=== PATIENT | male | born 1960 | race African-American/Black ===

== ENCOUNTER 2017-06-08 06:24 | Inpatient (IN) | payer OTHER ==
[~2017-06-08] VITALS: Ht 180.3 cm; Wt 147.6 kg
[~2017-06-08 06:24] MED LIST: AMBIEN5 M1 PO; CLONIDINE HCL0.1 MG PO; DESYREL100 MG PO; DOLOPHINE HCL10 MG PO; METHADONE 22 MG/1 ML PO; METHADONE10 MG/1 M1 PO; PERCOCET 10-321 EACH PO; SEROQUEL100 MG PO; TRAZODONE HCL50 MG PO; XANAX1 MG PO
[2017-06-08 07:50] LABS: BASOPHIL COUNT 0.1 K/uL (0-0.1); EOSINOPHIL (%) 3.2 % (0-5); EOSINOPHIL COUNT 0.2 K/uL (0-0.3); HEMATOCRIT 42.2 % (38.0-50.0); IMMATURE GRANULOCYTE (%) 0.6 % (0.0-0.7); INSTRUMENT ABS NEUTROPHIL CT 2.8 K/uL; LYMPHOCYTE COUNT 2.7 K/uL (1.0-2.8); MCH 29.3 PG (29.0-34.0); MCHC 31.5 G/DL (30.0-36.0); MEAN PLAT.VOLUME 9.4 uM^3 (9.0-12.4); MONOCYTE (%) 11.1 % (3-12); MONOCYTE COUNT 0.7 K/uL (0-0.8); NEUTROPHIL (%) 42.6 % (45-76); NEUTROPHIL COUNT 2.8 K/uL (1.8-6.4); PLATELET COUNT 214 K/uL (156-360); RBC DIS.WIDTH-SD 47.8 % (39-53); RED BLOOD COUNT 4.54 M/uL (4.00-5.50); WHITE BLOOD COUNT 6.6 K/uL (4.1-10.2)
[2017-06-08 07:57] LABS: CHLORIDE 107 mEq/L (99-109); POTASSIUM 3.5 mEq/L (3.7-5.4); SODIUM 140 mEq/L (136-147)
[2017-06-08 07:59] LABS: GLUCOSE 91 mg/dL (70-99)
[2017-06-08 08:01] LABS: ANION GAP 5 MEQ/L (2-14)
[2017-06-08 08:02] LABS: SERUM ETHYL ALCOHOL < 10 mg/dL
[2017-06-08 08:03] LABS: GFR ESTIMATE (CALCULATED) > 59 mL/min/
[2017-06-08 08:04] LABS: UREA NITROGEN (BUN) 13 mg/dL (9-23)
[2017-06-08 08:10] LABS: TROP-I INTERPRETATION NEGATIVE; TROPONIN-I < 0.01 ng/mL (0.0-0.30)
[2017-06-08 09:20] LABS: ADD MEDTOX COMMENT Y; AMPHETAMINE NEGATIVE (500 ng/mL); BARBITURATES NEGATIVE (200 ng/mL); BENZODIAZEPINES NEGATIVE (150 ng/mL); COCAINE PRESUMPTIVE POSITIVE (150 ng/mL); INTERNAL CONTROLS VALID? YES; METHADONE PRESUMPTIVE POSITIVE (200 ng/mL); METHAMPHETAMINE NEGATIVE (500 ng/mL); OPIATES (MORPHINE) NEGATIVE (100 ng/mL); OXYCODONE NEGATIVE (100 ng/mL); PHENCYCLIDINE NEGATIVE (25 ng/mL); PROPOXYPHENE NEGATIVE (300 ng/mL); THC CANNABINOIDS NEGATIVE (50 ng/mL); TRICYCLIC ANTIDEPRESSANTS NEGATIVE (300 ng/mL)
[2017-06-08 10:27] VITALS: BP 167/86
[2017-06-08 11:19] VITALS: BP 166/86
[2017-06-08 14:17] VITALS: BP 146/71
[2017-06-08 15:40] VITALS: BP 135/65
[2017-06-09 06:40] LABS: POINT-OF-CARE METER ID UU14188576; POINT-OF-CARE USER ID BHSSMG
[2017-06-09 07:21] VITALS: BP 166/103
[2017-06-09 15:53] VITALS: BP 152/90
[2017-06-10 07:50] VITALS: BP 151/85
[2017-06-10] MEDS ORDERED: AMLODIPINE BESYL5 MG PO (11:15)
[2017-06-10] MEDS ORDERED: WELLBUTRIN XL300 MG PO (11:15)
== END 2017-06-10 11:57 | disposition home or self-care (01) | DRG 885 ==
LOC: EME 06:24 → 1WEST 08:25 → EDOF 08:25 → 1WEST 10:16 → ENRESERV 10:16 → 1WEST 06-10 11:57
PROVIDERS: Emergency Medicine; Psychiatry & Neurology Psychiatry
DX: F33.1 Major depressive disorder, recurrent, moderate (principal); F11.20 Opioid dependence, uncomplicated; F14.20 Cocaine dependence, uncomplicated; R45.851 Suicidal ideations; Z68.42 Body mass index [BMI] 45.0-49.9, adult; F41.9 Anxiety disorder, unspecified; F17.210 Nicotine dependence, cigarettes, uncomplicated; I10 Essential (primary) hypertension; Z91.14 Patient's other noncompliance with medication regimen; E66.01 Morbid (severe) obesity due to excess calories
CPT/HCPCS: 71010; 80048; 82948; 84484; 84999; 85025; 90839; 93005; 97150 GO; 97165 GO; 99281; 99284; G0480; Q0177

== ENCOUNTER 2017-12-19 10:32 | Inpatient (IN) | payer OTHER ==
[~2017-12-19] VITALS: Ht 177.8 cm; Wt 157.2 kg
[~2017-12-19 10:32] MED LIST changes: +AMLODIPINE BESYL5 MG PO; +WELLBUTRIN XL300 MG PO
[2017-12-19 11:55] LABS: HEMATOCRIT 47.1 % (38.0-50.0); HEMOGLOBIN 15.5 G/DL (12.5-16.6); MCHC 32.9 G/DL (30.0-36.0); MCV 91.3 FL (86-99); PLATELET COUNT 251 K/uL (156-360); RBC DIS.WIDTH-CV 13.8 % (11.8-14.6); RBC DIS.WIDTH-SD 46.5 % (39-53); RED BLOOD COUNT 5.16 M/uL (4.00-5.50); WHITE BLOOD COUNT 8.3 K/uL (4.1-10.2)
[2017-12-19 12:08] LABS: CHLORIDE 109 mEq/L (99-109); POTASSIUM 4.4 mEq/L (3.7-5.4); SODIUM 141 mEq/L (136-147)
[2017-12-19 12:10] LABS: GLUCOSE 77 mg/dL (70-99)
[2017-12-19 12:13] LABS: SERUM ETHYL ALCOHOL < 10 mg/dL
[2017-12-19 12:14] LABS: GFR ESTIMATE (CALCULATED) > 59 mL/min/ (58.99-99999); UREA NITROGEN (BUN) 16 mg/dL (9-23)
[2017-12-19 12:17] LABS: TROP-I INTERPRETATION NEGATIVE; TROPONIN-I < 0.01 ng/mL (0.0-0.30)
[2017-12-19 12:25] LABS: AMPHETAMINE NEGATIVE (500 ng/mL); BENZODIAZEPINES NEGATIVE (150 ng/mL); COCAINE PRESUMPTIVE POSITIVE (150 ng/mL); METHAMPHETAMINE NEGATIVE (500 ng/mL); OPIATES (MORPHINE) NEGATIVE (100 ng/mL); PHENCYCLIDINE NEGATIVE (25 ng/mL); THC CANNABINOIDS NEGATIVE (50 ng/mL)
[2017-12-19 12:26] LABS: BARBITURATES NEGATIVE (200 ng/mL); BUPRENORPHINE NEGATIVE (10 ng/mL); METHADONE PRESUMPTIVE POSITIVE (200 ng/mL); OXYCODONE NEGATIVE (100 ng/mL); PROPOXYPHENE NEGATIVE (300 ng/mL); TRICYCLIC ANTIDEPRESSANTS NEGATIVE (300 ng/mL)
[2017-12-19] MEDS ORDERED: NORVASC5 MG PO (15:19)
[2017-12-19] MEDS ORDERED: COZAAR100 MG PO (15:25)
[2017-12-20 00:58] LABS: APPEARANCE CLEAR ((CLEAR)); BILIRUBIN NEGATIVE; BLOOD NEGATIVE; COLOR YELLOW ((YELLOW)); GLUCOSE (STRIP) NEGATIVE; KETONES NEGATIVE; LEUKOCYTES NEGATIVE; NITRITE NEGATIVE; PROTEIN (STRIP) NEGATIVE; SPECIFIC GRAVITY 1.025 (1.000-1.030); UROBILINOGEN 0.2 MG/DL (0.2-1.0)
[2017-12-20 11:53] VITALS: BP 162/71
[2017-12-20 15:44] VITALS: BP 151/93
[2017-12-21 01:27] VITALS: BP 175/88
[2017-12-21 07:44] VITALS: BP 171/95
[2017-12-21 09:55] VITALS: BP 137/92
[2017-12-21 15:50] VITALS: BP 159/89
[2017-12-21 21:23] VITALS: BP 166/113
[2017-12-21 21:54] VITALS: BP 166/98
[2017-12-22 04:05] VITALS: BP 141/92
[2017-12-22 07:45] VITALS: BP 173/78
[2017-12-22 15:47] VITALS: BP 137/79
[2017-12-23 09:40] VITALS: BP 174/85
[2017-12-23 10:25] VITALS: BP 156/99
[2017-12-23 16:17] VITALS: BP 136/63
[2017-12-24 08:01] VITALS: BP 162/91
[2017-12-24 11:43] VITALS: BP 112/67
[2017-12-24 15:26] VITALS: BP 128/68
[2017-12-25 07:46] VITALS: BP 146/89
[2017-12-25 16:01] VITALS: BP 112/62
[2017-12-26 07:45] VITALS: BP 112/71
[2017-12-26 15:34] VITALS: BP 116/58
[2017-12-27 07:54] VITALS: BP 111/67
[2017-12-27 15:37] VITALS: BP 124/73
[2017-12-28 07:59] VITALS: BP 119/74
[2017-12-28 15:09] VITALS: BP 109/60
[2017-12-29 07:40] VITALS: BP 150/75
[2017-12-29 15:45] VITALS: BP 116/57
[2017-12-30 07:56] VITALS: BP 151/81
[2017-12-30] MEDS ORDERED: AMLODIPINE BESY10 MG PO (09:27)
[2017-12-30] MEDS ORDERED: COZAAR100 MG PO (09:27)
[2017-12-30] MEDS ORDERED: WELLBUTRIN XL300 MG PO (09:27)
== END 2017-12-30 13:38 | disposition home or self-care (01) | DRG 885 ==
LOC: EME 10:32 → EDOF 12-20 09:50 → 1WEST 12-20 09:50 → ENRESERV 12-20 11:43 → 1WEST 12-20 11:43
PROVIDERS: Emergency Medicine Emergency Medical Services
DX: F33.2 Major depressive disorder, recurrent severe without psychotic features (principal); R45.851 Suicidal ideations; F11.20 Opioid dependence, uncomplicated; F14.20 Cocaine dependence, uncomplicated; Z59.0 Homelessness; I10 Essential (primary) hypertension; K59.00 Constipation, unspecified; F17.200 Nicotine dependence, unspecified, uncomplicated; E66.01 Morbid (severe) obesity due to excess calories; Z68.43 Body mass index [BMI] 50.0-59.9, adult; B19.20 Unspecified viral hepatitis C without hepatic coma; F41.9 Anxiety disorder, unspecified; G43.909 Migraine, unspecified, not intractable, without status migrainosus; M79.89 Other specified soft tissue disorders; K92.1 Melena; R00.2 Palpitations; R26.2 Difficulty in walking, not elsewhere classified; R60.0 Localized edema
CPT/HCPCS: 80048; 80053; 81003; 82140; 83880; 84484; 84999; 85027; 90686; 90839; 93005; 93971; 97150 GO; 97166 GO; 99281; 99285; G0480; Q0177